=== PATIENT | female | born 1990 | race Caucasian/White ===

== ENCOUNTER 2018-09-21 19:32 | Emergency (ER) | payer OTHER ==
[2018-09-21 20:08] VITALS: BP 139/79
[2018-09-21] MEDS ORDERED: Ketorolac INJ* 30 MG/ML 1 ML VIAL IM ONE (20:16)
--- NOTE | 2018-10-03 14:56 | UC ---
Back Pain HPI - HPI Summary HPI Summary: 28-year-old female who turned just right in had some lower back pain. She denies any urinary symptoms. No numbness or tingling in her extremities and no saddle anesthesia. She is flying to [place] tomorrow. - History of Current Complaint Chief Complaint: UCBackPain Stated Complaint: LOWER BACK PAIN Time Seen by Provider: 09/21/18 20:01 Hx Obtained From: Patient Hx Last Menstrual Period: last week ?: No Onset/Duration: Gradual Onset Timing: Constant Severity Initially: Moderate Severity Currently: Moderate Pain Intensity: 9 Pain Scale Used: 0-10 Numeric Character: Sharp, Aching Aggravating Factor(s): Movement, Lifting, Bending, Walking Alleviating Factor(s): Nothing Associated Signs And Symptoms: Negative: Weakness, Numbness, Tingling, Abdominal Pain, Flank Pain, Bladder Incontinence, Bowel Incontinence - Allergies/Home Medications Allergies/Adverse Reactions: Allergies Allergy/AdvReac Type Severity Reaction Status Date / Time No Known Allergies Allergy Verified 09/21/18 20:08 PMH/Surg Hx/FS Hx/Imm Hx Previously Healthy: Yes - Surgical History Surgical History: None - Family History Known Family History: Positive: Non-Contributory - Social History Alcohol Use: Occasionally Substance Use Type: None Smoking Status (MU): Former Smoker When Did the Patient Quit Smoking/Using Tobacco: 5 years ago Review of Systems All Other Systems Reviewed And Are Negative: Yes Motor: Positive: Other - Patient with low back pain and just moves slowly. Neurovascular: Positive: Negative Musculoskeletal: Positive: Other: - Moving slowly with low back pain. Neurological: Negative: Headache, Weakness, Paresthesia, Numbness Psychological: Positive: Negative Is Patient Immunocompromised?: No Physical Exam Triage Information Reviewed: Yes Appearance: Well-Appearing, Well-Nourished, Pain Distress Vital Signs: Initial Vital Signs Temp 99.6 F 09/21/18 20:03 Pulse 85 09/21/18 20:03 Resp 18 09/21/18 20:03 BP 139/79 09/21/18 20:03 Pulse Ox 100 09/21/18 20:03 Vital Signs Reviewed: Yes Respiratory: Positive: Lungs clear, Normal breath sounds, No respiratory distress, No accessory muscle use Cardiovascular: Positive: RRR, No Murmur, Pulses Normal, Brisk Capillary Refill Abdomen Description: Positive: Nontender, No Organomegaly, Soft Bowel Sounds: Positive: Present Musculoskeletal: Positive: Strength Intact, ROM Intact, Other: - Patient just moves very slowly because of the pain and lower back. Good peripheral pulses neuro sensation capillary refill, negative straight leg raise. Neurological: Positive: Alert Psychological Exam: Normal Skin Exam: Normal Back Pain Course/Dx - Course Course Of Treatment: The patient refused an injection of Toradol. She was given a prescription for Motrin 600 mg every 8 hours. She'll apply heat to the sore area. She has a long flight of about 8 hours tomorrow and I advised her to get up and walk frequently throughout the plane. Definitely if she has any numbness or tingling in her extremities or worsening symptoms she is to follow-up in an emergency room. The patient is agreeable to this plan of action. - Differential Dx/Diagnosis Provider Diagnosis: Low back strain Discharge - Sign-Out/Discharge Documenting (check all that apply): Patient Departure All imaging exams completed and their final reports reviewed: No Studies - Discharge Plan Condition: Fair Disposition: HOME Prescriptions: Cyclobenzaprine TAB* [Flexeril 10 MG TAB*] 10 mg PO TID PRN #15 tab PRN Reason: Pain Ibuprofen TAB* [Motrin TAB* 600 MG] 600 mg PO Q8H PRN #30 tab PRN Reason: Pain Patient Education Materials: Low Back Strain (ED) Referrals: [facility] [Outside] No Primary Care Phys,NOPCP [Primary Care Provider] - Additional Instructions: Avoid movements that cause pain. Continue to apply heat to the sore areas. Do not operate machinery, drive or drink alcohol while you're taking the muscle relaxant. Take the Motrin with food. Definite follow-up with her primary care provider in 3 or 4 days if no improvement. - Billing Disposition and Condition Condition: FAIR Disposition: Home
== END 2018-09-21 20:31 | disposition home or self-care (01) ==
LOC: UCCORT 19:32
DX: S39.012A Strain of muscle, fascia and tendon of lower back, initial encounter (principal); X50.9XXA Other and unspecified overexertion or strenuous movements or postures, initial encounter; Y92.9 Unspecified place or not applicable; Z87.891 Personal history of nicotine dependence
CPT/HCPCS: 96372; 99202; G0463; J1885